=== PATIENT | male | born 1990 | race American Indian/Alaskan Native ===

== ENCOUNTER 2018-09-25 17:22 | Emergency (ER) | payer SELFPAY ==
--- NOTE | 2018-09-25 17:30 | Event Note ---
ED Screening Note Date of service: 09/25/18 Time: 17:26 ED Screening Note: This is a 28 y.o. M. that presents to the ER with left sided facial swelling This initial assessment/diagnostic orders/clinical plan/treatment(s) is/are subject to change based on patients health status, clinical progression and re- assessment by fellow clinical providers in the ED. Further treatment and workup at subsequent clinical providers discretion. Patient/guardian urged not to elope from the ED as their condition may be serious if not clinically assessed and managed. Initial orders include: CT of facial bones
[2018-09-25] MEDS ORDERED: XYLOCAINE 1% 20 mL INFILTRATI ONE (18:49)
[2018-09-25] MEDS ORDERED: XYLOCAINE 1% MPF 5 mL INFILTRATI ONE (18:50)
[2018-09-25] MEDS ORDERED: XYLOCAINE 1% MPF 5 mL ONE (18:54)
--- NOTE | 2018-09-25 19:18 | Emergency Department Report ---
- General Chief complaint: Dental/Oral Stated complaint: LT FACE SWOLLEN Time Seen by Provider: 09/25/18 17:26 Source: patient Mode of arrival: Ambulatory Limitations: No Limitations - History of Present Illness Initial comments: Patient is a 28-year-old male who presents to the emergency room with complaints of swelling to his left jaw that began 2 days ago. He states that he did have a pimple present there which he attempted to pop. He denies any fever, insect bite, dental pain. he states he last saw a dentist last year and had teeth extractions at that time. He has any past medical history or allergies to medications. - Related Data Previous Rx's Medication Instructions Recorded Last Taken Type Acetaminophen/Codeine [Tylenol 1 tab PO Q6H PRN #7 tab 09/25/18 Unknown Rx /Codeine # 3 tab] Clindamycin [Clindamycin CAP] 450 mg PO TID 7 Days #63 capsule 09/25/18 Unknown Rx Ibuprofen [Motrin 600 MG tab] 600 mg PO Q8H PRN #14 tablet 09/25/18 Unknown Rx Sulfamethoxazole/Trimethoprim 1 each PO BID 7 Days #14 tablet 09/25/18 Unknown Rx [Bactrim DS TAB] Allergies Allergy/AdvReac Type Severity Reaction Status Date / Time No Known Allergies Allergy Verified 09/25/18 18:59 Abscess Boil HPI - HPI Chief Complaint: Dental/Oral Stated Complaint: LT FACE SWOLLEN Time Seen by Provider: 09/25/18 17:26 Home Medications: Previous Rx's Medication Instructions Recorded Last Taken Type Acetaminophen/Codeine [Tylenol 1 tab PO Q6H PRN #7 tab 09/25/18 Unknown Rx /Codeine # 3 tab] Clindamycin [Clindamycin CAP] 450 mg PO TID 7 Days #63 capsule 09/25/18 Unknown Rx Ibuprofen [Motrin 600 MG tab] 600 mg PO Q8H PRN #14 tablet 09/25/18 Unknown Rx Sulfamethoxazole/Trimethoprim 1 each PO BID 7 Days #14 tablet 09/25/18 Unknown Rx [Bactrim DS TAB] Allergies/Adverse Reactions: Allergies Allergy/AdvReac Type Severity Reaction Status Date / Time No Known Allergies Allergy Verified 09/25/18 18:59 ED Review of Systems ROS: Stated complaint: LT FACE SWOLLEN Other details as noted in HPI Comment: All other systems reviewed and negative ED Past Medical Hx - Past Medical History Previous Medical History?: No - Surgical History Past Surgical History?: No - Social History Smoking Status: Current Every Day Smoker Substance Use Type: Marijuana - Medications Home Medications: Home Medications Medication Instructions Recorded Confirmed Last Taken Type Acetaminophen/Codeine [Tylenol 1 tab PO Q6H PRN #7 tab 09/25/18 Unknown Rx /Codeine # 3 tab] Clindamycin [Clindamycin CAP] 450 mg PO TID 7 Days #63 capsule 09/25/18 Unknown Rx Ibuprofen [Motrin 600 MG tab] 600 mg PO Q8H PRN #14 tablet 09/25/18 Unknown Rx Sulfamethoxazole/Trimethoprim 1 each PO BID 7 Days #14 tablet 09/25/18 Unknown Rx [Bactrim DS TAB] ED Physical Exam - General Limitations: No Limitations General appearance: alert, in no apparent distress - Head Head exam: Present: atraumatic, normocephalic - Eye Eye exam: Present: normal appearance - ENT ENT exam: Present: normal orophraynx, mucous membranes moist, other (no cracked teeth, no dental abscess, no obvious dental caries, uvula is midline, no uvular edema) - Respiratory Respiratory exam: Present: normal lung sounds bilaterally. Absent: respiratory distress, wheezes, rales, rhonchi, stridor, chest wall tenderness, accessory muscle use, decreased breath sounds, prolonged expiratory - Cardiovascular Cardiovascular Exam: Present: regular rate, normal rhythm, normal heart sounds. Absent: systolic murmur, diastolic murmur, rubs, gallop - Neurological Exam Neurological exam: Present: alert, oriented X3 - Psychiatric Psychiatric exam: Present: normal affect, normal mood - Skin Skin exam: Present: warm, dry, other (3 cm area of induration to the left jaw which comes to a head at a small pimple, small area of fluctuance, no surround ing edema, it feels superficial on palpation ) ED Course Vital Signs 09/25/18 09/25/18 17:26 19:49 Temperature 98.7 F 98.9 F Pulse Rate 84 78 Respiratory 16 16 Rate Blood Pressure 131/78 Blood Pressure 151/94 [Right] O2 Sat by Pulse 99 98 Oximetry - I & D Left Jaw Type of Procedure: Simple Site: left jaw Blade Size: 11 I & D Procedure: betadine prep, sterile drapes applied, sterile dressing applied Progress: area prepped with betadine, sterile drapes applied, 2 cc of 1% lidocaine used as anesthetic, 1 cm incision made with 11 blade, small amount of purulent drainage expressed, mostly indurated skin present, pt tolerated well, no complications, bleeding well controlled ED Medical Decision Making - Medical Decision Making Patient is a 28-year-old male who presents to the emergency room with complaints of swelling to his left jaw that began 2 days ago. He states that he did have a pimple present there which he attempted to pop. He denies any fever, insect bite, dental pain. he states he last saw a dentist last year and had teeth extractions at that time. He has any past medical history or allergies to medications. VSS. on exam: no cracked teeth, no dental abscess, no obvious dental caries, uvula is midline, no uvular edema, 3 cm area of induration to the left jaw which comes to a head at a small pimple, small area of fluctuance, no surrounding edema, it feels superficial on palpation. I&D performed per procedure note with small amount of purulent drainage, mostly indurated skin. pt placed on bactrim and clindamycin. advised to please take medication as prescribed completion. Keep area clean and dry. No hot tub, pool, soaking in water. May wash with soap and water and immediately dry. Follow up with a primary care doctor in the next 3 days for reevaluation. Return to the emergency room for any new or worsening symptoms or if symptoms not improving. - Differential Diagnosis cellulitis, abscess, carbuncle, folliculitis Critical care attestation.: If time is entered above; I have spent that time in minutes in the direct care of this critically ill patient, excluding procedure time. ED Disposition Clinical Impression: Abscess Disposition: DC-01 TO HOME OR SELFCARE Is pt being admited?: No Does the pt Need Aspirin: No Condition: Stable Instructions: Abscess Incision and Drainage (ED), Abscess (ED) Additional Instructions: Please take medication as prescribed completion. Keep area clean and dry. No hot tub, pool, soaking in water. May wash with soap and water and immediately dry. Follow up with a primary care doctor in the next 3 days for reevaluation. Return to the emergency room for any new or worsening symptoms or if symptoms not improving. Prescriptions: Sulfamethoxazole/Trimethoprim [Bactrim DS TAB] 1 each PO BID 7 Days #14 tablet Clindamycin [Clindamycin CAP] 450 mg PO TID 7 Days #63 capsule Ibuprofen [Motrin 600 MG tab] 600 mg PO Q8H PRN #14 tablet PRN Reason: Pain Acetaminophen/Codeine [Tylenol /Codeine # 3 tab] 1 tab PO Q6H PRN #7 tab PRN Reason: Pain , Severe (7-10) Referrals: MARTA MCCARTHY MD [Primary Care Provider] - 3-5 Days Forms: Work/School Release Form(ED) Time of Disposition: 19:18 Print Language: FAROESE
[2018-09-25 19:51] VITALS: BP 151/94
== END 2018-09-25 19:49 | disposition home or self-care (01) ==
LOC: ED 17:22
DX: M27.2 Inflammatory conditions of jaws (principal); F17.200 Nicotine dependence, unspecified, uncomplicated; F12.10 Cannabis abuse, uncomplicated; Z79.899 Other long term (current) drug therapy
CPT/HCPCS: 99282

== ENCOUNTER 2019-05-28 02:29 | Emergency (ER) | payer SELFPAY ==
[2019-05-28] MEDS ORDERED: SODIUM CHLORIDE 0.9% 1000 ML 2,000 ML ONE (02:37)
[2019-05-28] MEDS ORDERED: LIDOCAINE 2%/EPINEPHRINE 1:200,000 VIAL (20 ML) INFILTRATI ONE (02:38)
[2019-05-28] MEDS ORDERED: TETANUS,DIPH,PERTUSS(ACELL) VACCINE 0.5 ML SYRINGE IM ONE (02:47)
[2019-05-28] MEDS ORDERED: SODIUM CHLORIDE 0.9% 1000 ML 1,000 ML IV ONE ×2 (02:47)
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
[2019-05-28] MEDS ORDERED: IBUPROFEN 800 MG TAB ONE (04:44)
[2019-05-28] MEDS ORDERED: IBUPROFEN 800 MG TAB PO ONE (06:43)
[2019-05-28 06:44] VITALS: BP 125/76
== END 2019-05-28 06:44 | disposition home or self-care (01) ==
LOC: ED 02:29
DX: S01.01XA Laceration without foreign body of scalp, initial encounter (principal); S09.8XXA Other specified injuries of head, initial encounter; F10.129 Alcohol abuse with intoxication, unspecified; Z79.1 Long term (current) use of non-steroidal anti-inflammatories (NSAID); Z79.899 Other long term (current) drug therapy; Y04.2XXA Assault by strike against or bumped into by another person, initial encounter; Y93.89 Activity, other specified; Y92.89 Other specified places as the place of occurrence of the external cause; Y99.8 Other external cause status
CPT/HCPCS: 12002; 70450; 90471; 90715; 99284; J7030

== ENCOUNTER 2019-06-04 11:50 | Emergency (ER) | payer SELFPAY ==
[2019-06-04 11:59] VITALS: BP 118/76
--- NOTE | 2019-06-04 12:15 | Emergency Department Report ---
Suture/Staple Removal - [facility] Chief Complaint: Laceration/Recheck/Suture Stated Complaint: REMOVE CHRISSIE FROM HEAD Time Seen by Provider: 06/04/19 12:04 When Sutures or Chrissie Placed: 5-7 Days Ago Wound Location: To the left occipital region of the head linear ED Review of Systems ROS: Stated complaint: REMOVE CHRISSIE FROM HEAD Other details as noted in HPI Comment: All other systems reviewed and negative ED Past Medical Hx - Past Medical History Previous Medical History?: No - Surgical History Past Surgical History?: No - Social History Smoking Status: Current Every Day Smoker Substance Use Type: Alcohol - Medications Home Medications: Home Medications Medication Instructions Recorded Confirmed Last Taken Type Acetaminophen/Codeine [Tylenol 1 tab PO Q6H PRN #7 tab 09/25/18 Unknown Rx /Codeine # 3 tab] Clindamycin [Clindamycin CAP] 450 mg PO TID 7 Days #63 capsule 09/25/18 Unknown Rx Ibuprofen [Motrin 600 MG tab] 600 mg PO Q8H PRN #14 tablet 09/25/18 Unknown Rx Sulfamethoxazole/Trimethoprim 1 each PO BID 7 Days #14 tablet 09/25/18 Unknown Rx [Bactrim DS TAB] Suture Removal Exam - Exam General: Vital signs noted. No distress. Alert and acting appropriately. Wound: No Pathologic Erythema, No Tenderness, No Drainage, No Pus, No Wound Dehiscence Other Systems: All other systems reviewed and are unremarkable. Wound healing well 14 chrissie still remain in place no no discharge no swelling ED Course Vital Signs 06/04/19 11:59 Temperature 97.8 F Pulse Rate 90 Respiratory 18 Rate Blood Pressure 118/76 [Left] O2 Sat by Pulse 97 Oximetry - Procedure Description Procedures done: Chrissie removed and sent with no complications no wound dehiscence no blood loss Critical care attestation.: If time is entered above; I have spent that time in minutes in the direct care of this critically ill patient, excluding procedure time. ED Disposition Clinical Impression: Removal of staple Disposition: DC-01 TO HOME OR SELFCARE Is pt being admited?: No Does the pt Need Aspirin: No Condition: Stable Instructions: Staple Care (ED), Suture Removal (ED) Referrals: [facility] [Provider Group] - 3-5 Days
== END 2019-06-04 12:21 | disposition home or self-care (01) ==
LOC: ED 11:50
DX: Z48.02 Encounter for removal of sutures (principal); F17.200 Nicotine dependence, unspecified, uncomplicated; Z79.899 Other long term (current) drug therapy